=== PATIENT | female | born 1955 | race Caucasian/White ===

== ENCOUNTER 2020-04-05 00:45 | Outpatient (CLI) | payer OTHER, SELFPAY ==
--- NOTE | 2020-04-05 | DI.MAMMO_ITS ---
EXAM: MG MAMMO SCREENING CLINICAL HISTORY: SCREENING, Z12.39 TECHNIQUE: Bilateral full field digital CC and MLO mammographic images were obtained with 3D tomosyn thesis and utilizing computer aided detection (CAD). COMPARISON: Available for comparison. FINDINGS: Masses/Architectural Distortion: None seen. Microcalcifications: No suspicious pleomorphic-type are seen. Skin Thickening/Nipple Retraction: None. IMPRESSION: 1. No significant interval change with no specific features of malignancy noted. 2. Unless there is more urgent need, screening mammography is recommended, as per [employer] guidelines. BI-RADS Category 1 - Negative Breast Density - Category B - Scattered areas of fibroglandular density A negative radiographic report should not delay biopsy if a dominant or clinically suspicious mass is present. Up to ten percent of cancers are not identified on mammography. A negative report may reinforce clinical impression. Adenosis and dense breasts may obscure an underlying neoplasm. False positive reports average 6 to 10%. Patient will receive a letter notifying them of these results.
== END 2020-04-05 01:05 ==
PROVIDERS: PCP Internal Medicine; Visit Provider Internal Medicine
DX: Z12.31 Encounter for screening mammogram for malignant neoplasm of breast (principal)
CPT/HCPCS: 77063; 77067

== ENCOUNTER 2020-06-08 12:55 | Outpatient (REF) | payer OTHER, SELFPAY ==
[2020-06-08 21:36] LABS: HCT 40.7 % (36.0-46.0); HGB 13.1 g/dL (11.2-15.7); MCH 27.9 pg (27.0-33.0); MCHC 32.2 % (32.0-36.0); MCV 86.8 fL (80-95); MPV 9.7 fL (8.0-11.0); Platelet Count 314 10^3/uL (130-400); RBC 4.69 10^6/uL (3.93-5.22); RDW 14.2 % (11.7-14.6); RDW-SD 45.2 fL
[2020-06-08 22:13] LABS: ALT 28 U/L (14-59); AST 18 U/L (15-37); Albumin 3.5 g/dL (3.4-5.0); Alkaline Phosphatase 83 U/L (46-116); Anion Gap 7.6 mmol/L (3-11); BUN 14 mg/dL (7-18); Bilirubin, Total 0.4 mg/dL (0.2-1.0); CO2 29.4 mmol/L (21.0-32.0); CREATININE 0.5 mg/dL (0.55-1.02); Calcium 8.9 mg/dL (8.5-10.1); Chloride 107 mmol/L (98-107); Glucose 81 mg/dL (74-106); NT-proBNP 1897 pg/mL (<300); Potassium 4.3 mmol/L (3.5-5.1); Sodium 144 mmol/L (136-145); TSH 2.62 uIU/mL (0.36-3.74); Total Protein 7.2 g/dL (6.4-8.2)
== END 2020-06-08 12:56 | disposition home or self-care (01) ==
LOC: NCHCN 12:55
PROVIDERS: PCP Internal Medicine; Visit Provider Internal Medicine
DX: R06.02 Shortness of breath (principal); I48.91 Unspecified atrial fibrillation
CPT/HCPCS: 80053; 85027; 83880; 84443

== ENCOUNTER 2020-06-15 09:27 | Outpatient (CLI) | payer OTHER, SELFPAY ==
--- NOTE | 2020-06-15 09:45 | RT.EKG_ITS ---
APPROVED REPORT Exam: Resting ECG Patient Location: O HR:58 bpm ECG Measurements Heart Rate 58 AXIS VA 167 P 13 QRSd 79 QRS 42 QT 422 T 65 QTc 415 Conclusion Sinus rhythm...normal P axis, V-rate 50- 99 Baseline wander in lead(s) I,II,aVR
== END 2020-06-15 09:28 | disposition home or self-care (01) ==
LOC: DI.CARD 09:47
PROVIDERS: PCP Internal Medicine; Referring Provider Internal Medicine; Visit Provider Internal Medicine Cardiovascular Disease
DX: I48.91 Unspecified atrial fibrillation (principal)
CPT/HCPCS: 93010

== ENCOUNTER → 2020-06-15 09:27 | Outpatient (BNVA) | payer OTHER, SELFPAY | PROVIDERS: PCP Internal Medicine; Referring Provider Internal Medicine; Visit Provider Internal Medicine Cardiovascular Disease | DX: I48.91 Unspecified atrial fibrillation (principal); I10 Essential (primary) hypertension | CPT/HCPCS: 99203; 99204 ==